=== PATIENT | male | born 1940 | race Caucasian/White ===

== ENCOUNTER → 2017-02-17 | Outpatient (CLI) | payer MEDICARE, OTHER ==
[2017-02-17] VITALS (9 sets, daily range): BP systolic 133–160; BP diastolic 61–78
[~2017-02-17] MED LIST: BACTRIM DS 8001 TA1; BACTRIM DS 8001 TA1 PO; CARTIA XT240 MG PO; CIPROFLOXACIN500 MG; FLOMAX0.4 MG PO; HYDROCODONE BIT1 T11 PO; NORVASC10 MG; TAMSULOSIN HCL0.4 MG PO; VASOTEC5 MG PO; VICODIN 5-3001 EACH PO; XARE20MG PO
[2017-02-17 07:56] LABS: HEMATOCRIT 27.1 % (42.0-52.0); HEMOGLOBIN 8.1 g/dl (14.0-18.0)
== END | disposition home or self-care (01) ==
LOC: TRNFUSION 02:03
PROVIDERS: Internal Medicine
DX: D64.9 Anemia, unspecified (principal)